=== PATIENT | female | born 1980 | race Caucasian/White ===

== ENCOUNTER 2020-12-05 17:07 | Emergency (ER) | payer SELFPAY ==
[~2020-12-05] VITALS: Ht 160 cm; Wt 69.0 kg
[2020-12-05] MEDS ORDERED: BENZONATATE 100 MG CAPSULE. PO ONE (18:30)
--- NOTE | 2020-12-05 18:34 | EKG ---
[facility] [address] [place] [id number] Test Date: 2020-12-05 Test Time: 17:33:31 Pat Name: EDIE CAVANAUGH Department: Room: Gender: F Smutter: LALO : 1980 Requested By: RJ MEJIA Order Number: [id number] Reading MD: Measurements Intervals [place] Rate: 74 P: 42 IA: 126 QRS: 60 QRSD: 84 T: 31 QT: 394 QTc: 443 Interpretive Statements SINUS RHYTHM NORMAL ECG RI6.02 Compared to ECG 12/05/2020 17:31:56 No significant changes
[2020-12-05 18:48] LABS: BASO # 0.1 x10^3/uL (0.0-0.2); BASO % 1 % (0-3); EOS # 0.2 x10^3/uL (0.0-0.7); EOS % 2 % (0-3); HEMATOCRIT 33.8 % (36.0-47.0); HEMOGLOBIN 11.7 g/dL (12.0-15.5); LYMPH # 2.8 x10^3/uL (1.0-4.8); LYMPH % 26 % (24-48); MEAN CORPUSCULAR HEMOGLOBIN 30 pg (25-35); MEAN CORPUSCULAR HGB CONC 35 g/dL (31-37); MEAN CORPUSCULAR VOLUME 86 fL (79-100); MONO # 0.8 x10^3/uL (0.0-1.1); MONO % 8 % (0-9); NEUT # 6.9 x10^3/uL (1.8-7.7); NEUT % 64 % (31-73); PLATELET COUNT 291 x10^3/uL (140-400); RED BLOOD COUNT 3.94 x10^6/uL (3.50-5.40); RED CELL DISTRIBUTION WIDTH 13.6 % (11.5-14.5); WHITE BLOOD COUNT 10.9 x10^3/uL (4.0-11.0)
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
--- NOTE | 2020-12-05 18:56 | RAD ---
INDICATION: Reason: cough syncope / Spl. Instructions: / History: COMPARISON: None. FINDINGS: Single view of chest obtained. No focal airspace consolidation. Cardiomediastinal contour unremarkable. No acute osseous abnormality. IMPRESSION: * No focal airspace consolidation or edema. Electronically signed by: Efren Rm MD (12/05/2020 6:53 PM) [id number]
[2020-12-05 19:10] LABS: CALCIUM 8.4 mg/dL (8.5-10.1); CREATININE 0.7 mg/dL (0.6-1.0); GFR 92.2; POTASSIUM 4.1 mmol/L (3.5-5.1)
[2020-12-05] MEDS ORDERED: IOHEXOL 350 MG/ML 100 ML VIAL. IV ONE (19:15)
[2020-12-05 19:17] LABS: ALBUMIN 3.8 g/dL (3.4-5.0); ALBUMIN/GLOBULIN RATIO 1.2 (1.0-1.7); TOTAL BILIRUBIN 0.3 mg/dL (0.2-1.0)
[2020-12-05] MEDS ORDERED: CONTRAST GIVEN. MC PRN (19:30)
--- NOTE | 2020-12-05 20:03 | RAD ---
EXAM: CT chest with contrast - pulmonary embolus protocol CLINICAL HISTORY: Reason: cough sob syncope history of PE / Spl. Instructions: OMNI 350 INJ 90 MLS / History: . COMPARISON: None. TECHNIQUE: CT of the chest following the administration of intravenous contrast during the pulmonary arterial phase. Axial, coronal and sagittal reformatted images were generated including MIP images. ---PQRS compliance statement - One or more of the following individualized dose reduction techniques were utilized for this study: 1. Automated exposure control 2. Adjustment of the mA and/or kV according to patient size 3. Use of iterative reconstruction technique--- FINDINGS: CHEST: Diagnostic quality: Suboptimal. Pulmonary emboli: No pulmonary emboli to the level of the segmental branches. More peripheral vessel s are not well assessed. Right heart strain: None Pulmonary arteries: Normal in caliber. Heart is not enlarged. No pericardial effusion. No pleural effusion or pneumothorax. No lobar consoli dation. No mediastinal or hilar lymphadenopathy. No axillary lymphadenopathy. Thyroid is grossly unre markable. 4 mm middle lobe lung nodule (series 3 image 71). No suspicious lung nodule or mass is seen . Visualized Upper abdomen: Unremarkable Bones: Evaluation of the osseous structures limited given MIP reconstructions. No aggressive osseous lesion is seen. IMPRESSION: 1. No evidence for acute pulmonary embolus to the level of the segmental branches. More peripheral v essels are not well assessed. 2. 4 mm middle lobe lung nodule. Per Fleischner Society guidelines, no follow-up needed if patient i s at low-risk for malignancy. Non-contrast chest CT can be considered in 12 months if patient is high -risk. Electronically signed by: Arash Luz MD (12/05/2020 8:00 PM) RAJANJAH
[2020-12-05] MEDS ORDERED: PRED20TA PO (20:57)
[2020-12-05] MEDS ORDERED: GUAI120L35 PO (20:57)
[2020-12-05] MEDS ORDERED: AZIT250T PO (20:57)
[2020-12-05 21:24] VITALS: BP 137/89
--- NOTE | 2020-12-07 16:41 | NUR ---
IP: Pt called back. I informed her of the negative COVID test. Pt verbalized understanding.
== END 2020-12-05 21:30 | disposition home or self-care (01) ==
LOC: ER 17:07
DX: J40 Bronchitis, not specified as acute or chronic (principal); Z20.822 Contact with and (suspected) exposure to COVID-19; R55 Syncope and collapse; M79.7 Fibromyalgia; R42 Dizziness and giddiness; F12.90 Cannabis use, unspecified, uncomplicated; F15.10 Other stimulant abuse, uncomplicated; Z90.710 Acquired absence of both cervix and uterus; Z88.8 Allergy status to other drugs, medicaments and biological substances
CPT/HCPCS: 36415; 71045; 71275; 80053; 81025; 85025; 85379; 93005; 99285; C9803; Q9967; U0003